=== PATIENT | male | born 1955 | race Caucasian/White ===

== ENCOUNTER 2024-09-18 15:46 | Observation (INO) | payer OTHER ==
[~2024-09-18] VITALS: Ht 180.3 cm; Wt 88.5 kg
[~2024-09-18 15:46] MED LIST: ALBU90I INH; AMLO5; AVINZA PO; CARI350; CARI350 PO; CIPR500 PO; CLON.1; DIAZ10; DIAZ10 PO; FLUO20; FLUO20 PO; GABA300 PO; HIGH BP MEDS; HYDPAM50; IBUHYD PO; LISHYD2012; LISI20 PO; LONOX; Neurontin 300300 MG PO; Norvasc5 MG PO; OMEP20ER PO; ONDA4ODT MM; OXYACE5T; OXYACE5T PO; OXYACE7.5T PO; OXYC1TAB11 PO; PANT20 PO; Prozac40 MG PO; SUCR1 PO; TRAACE PO; VITAMENS; Zestril30 MG PO
[2024-09-18 16:15] LABS: BASOPHILS ABSOLUTE AUTO 0.03 K/mm3 (0.00-0.23); BASOPHILS PERCENT AUTO 0 % (0-2); EOSINOPHILS ABSOLUTE AUTO 0.03 K/mm3 (0.00-0.68); EOSINOPHILS PERCENT AUTO 0 % (0-6); Hematocrit 26.8 % (37.0-53.0); Hemoglobin 8.1 g/dL (13.5-17.5); IMMATURE GRAN ABSOLUTE AUTO 0.06 K/mm3 (0.00-0.10); IMMATURE GRAN PERCENT AUTO 1 % (0-1); LYMPHOCYTES ABSOLUTE AUTO 1.07 K/mm3 (0.84-5.20); LYMPHOCYTES PERCENT AUTO 9 % (21-46); MONOCYTES PERCENT AUTO 9 % (4-13); Mean Corpuscular HGB 23.5 pg (26.0-34.0); Mean Corpuscular HGB Conc 30.2 g/dL (31.5-36.5); Mean Corpuscular Volume 78 fL (80-100); Mean Platelet Volume 7.6 fL (9.1-12.4); NEUTROPHILS ABSOLUTE AUTO 9.36 K/mm3 (1.96-9.15); NEUTROPHILS PERCENT AUTO 81 % (41-73); Platelet Count 319 K/mm3 (150-400); RDW Coefficient Variation 16.9 % (11.7-14.2); RDW Standard Deviation 47.8 fL (35.1-46.3); Red Blood Cell Count 3.45 M/mm3 (4.30-5.90); White Blood Cell Count 11.55 K/mm3 (4.00-11.30)
[2024-09-18 16:19] VITALS: BP 110/68
[2024-09-18 16:29] LABS: International Normalized Ratio 1.11; Prothrombin Time Results 11.8 Sec (9.7-11.5)
[2024-09-18 16:32] LABS: Albumin, Blood 2.5 g/dL (3.4-5.0); Albumin/Globulin Ratio 0.5 (0.8-1.8); Bilirubin, Total 0.3 mg/dL (0.1-1.0); Bun/Creatinine Ratio 17.3 (12.0-20.0); Calcium, Blood 10.2 mg/dL (8.5-10.1); Creatinine, Blood 1.97 mg/dL (0.60-1.20); Globulin, Blood 5.1 g/dL (2.2-4.0); Potassium, Blood 5.3 mmol/L (3.5-5.5); Total Protein, Blood 7.6 g/dL (6.4-8.2)
[2024-09-18] MEDS ORDERED: NS 1,000 ML IV SCH ×2 (16:40→18:40)
[2024-09-18] MEDS ORDERED: Aspirin 325 MG Tab PO ONE (17:15)
[2024-09-18] MEDS ORDERED: Clopidogrel Bisulfate 75 MG Tab PO ONE (17:30)
[2024-09-18] MEDS ORDERED: Ondansetron HCl 2 MG / ML 2ML Vial IV PRN (18:35)
[2024-09-18] MEDS ORDERED: Diazepam 5 MG Tab PO PRN (18:40)
[2024-09-18] MEDS ORDERED: OxyCODONE 5 mg/Acetamin 325 mg TABLET PO PRN (18:40)
[2024-09-18] MEDS ORDERED: Gabapentin 300 MG Cap PO SCH (21:00)
[2024-09-18] MEDS ORDERED: Heparin Sodium,Porcine 5,000 UNIT/0.5 ML SDV SC SCH (21:00)
[2024-09-19] MEDS ORDERED: Clopidogrel Bisulfate 75 MG Tab PO SCH (09:00)
[2024-09-19] MEDS ORDERED: Aspirin 81 MG Chew PO SCH (09:00)
[2024-09-19] MEDS ORDERED: Atorvastatin 40 MG Tab PO SCH (09:00)
== END 2024-09-18 23:00 | disposition home or self-care (01) ==
LOC: ER 15:46 → ERHOLD 18:34
PROVIDERS: Student in an Organized Health Care Education/Training Program; ADMIT Internal Medicine
DX: R47.1 Dysarthria and anarthria (principal); N17.9 Acute kidney failure, unspecified; E78.5 Hyperlipidemia, unspecified; G89.29 Other chronic pain; M54.9 Dorsalgia, unspecified; I12.9 Hypertensive chronic kidney disease with stage 1 through stage 4 chronic kidney disease, or unspecified chronic kidney disease; N18.9 Chronic kidney disease, unspecified; E78.00 Pure hypercholesterolemia, unspecified; Z53.29 Procedure and treatment not carried out because of patient's decision for other reasons; Z79.899 Other long term (current) drug therapy; Z88.5 Allergy status to narcotic agent; Z87.891 Personal history of nicotine dependence
CPT/HCPCS: 70450; 70496; 70498; 71045; 80053; 82140; 82947; 83036; 83605; 83735; 84484; 85025; 85610; 93005; 93010; 99285-25; A9270; G0378; J7030; Q9967

== ENCOUNTER → 2024-11-27 | Outpatient (CLI) | payer MEDICARE, OTHER ==
[2024-11-28 15:39] LABS: Microalbumin, Urine Quant. 24.3 mg/L (0.000-20.000); Protein, Urine Quantitative 37.1 mg/dL (0.0-11.9)
== END ==
LOC: LAB 10:00 → LAB SHORT 10:00 → LAB FUT 11-18 08:10
PROVIDERS: Internal Medicine Nephrology
DX: N18.30 Chronic kidney disease, stage 3 unspecified (principal); D75.1 Secondary polycythemia; E55.9 Vitamin D deficiency, unspecified; E78.00 Pure hypercholesterolemia, unspecified; R76.9 Abnormal immunological finding in serum, unspecified; R94.5 Abnormal results of liver function studies; R94.6 Abnormal results of thyroid function studies; D51.8 Other vitamin B12 deficiency anemias; D52.8 Other folate deficiency anemias; D50.9 Iron deficiency anemia, unspecified
CPT/HCPCS: 81050; 82043; 82570; 84156

== ENCOUNTER 2025-04-10 07:59 | Day surgery (SDC) | payer MEDICARE, OTHER ==
[~2025-04-10 07:59] MED LIST changes: -OXYC1TAB11 PO; +OXYCODONE-ACET1 EAC2 PO
[2025-04-10] MEDS ORDERED: NS 250 ML IV SCH (10:50)
[2025-04-10 15:31] LABS: BASOPHILS ABSOLUTE AUTO 0.04 K/mm3 (0.00-0.23); BASOPHILS PERCENT AUTO 0 % (0-2); EOSINOPHILS ABSOLUTE AUTO 0.08 K/mm3 (0.00-0.68); EOSINOPHILS PERCENT AUTO 1 % (0-6); Hematocrit 22.9 % (37.0-53.0); Hemoglobin 6.4 g/dL (13.5-17.5); IMMATURE GRAN ABSOLUTE AUTO 0.05 K/mm3 (0.00-0.10); IMMATURE GRAN PERCENT AUTO 1 % (0-1); LYMPHOCYTES ABSOLUTE AUTO 1.30 K/mm3 (0.84-5.20); LYMPHOCYTES PERCENT AUTO 14 % (21-46); MONOCYTES ABSOLUTE AUTO 0.60 K/mm3 (0.16-1.47); MONOCYTES PERCENT AUTO 6 % (4-13); Mean Corpuscular HGB Conc 27.9 g/dL (31.5-36.5); Mean Corpuscular Volume 71 fL (80-100); NEUTROPHILS ABSOLUTE AUTO 7.28 K/mm3 (1.96-9.15); NEUTROPHILS PERCENT AUTO 78 % (41-73); NRBC ABSOLUTE 0.00 K/mm3 (0.00-0.02); NRBC Auto 0.0 /100 WBC (0.0-0.2); Platelet Count 433 K/mm3 (150-400); RDW Coefficient Variation 18.6 % (11.7-14.2); RDW Standard Deviation 47.7 fL (35.1-46.3)
[2025-04-10] MEDS ORDERED: Prozac20 MG PO (16:05)
[2025-04-10 16:19] VITALS: BP 148/91
[2025-04-10 16:36] VITALS: BP 148/83
[2025-04-10 17:37] VITALS: BP 164/84
--- NOTE | 2025-04-10 17:45 | NUR ---
Pt declines laxis midway through the blood transfusion. Lungs clear. Watching TV without request.
[2025-04-10 18:44] VITALS: BP 150/93
== END 2025-04-10 18:50 | disposition home or self-care (01) ==
LOC: ATC 07:59
PROVIDERS: Internal Medicine Nephrology
DX: I12.9 Hypertensive chronic kidney disease with stage 1 through stage 4 chronic kidney disease, or unspecified chronic kidney disease (principal); N18.31 Chronic kidney disease, stage 3a; D63.1 Anemia in chronic kidney disease; N25.81 Secondary hyperparathyroidism of renal origin; Z79.899 Other long term (current) drug therapy; Z11.59 Encounter for screening for other viral diseases
CPT/HCPCS: 36415; 36430; 36591; 80053; 80061; 83036; 84443; 85025; 86803; 86850; 86900; 86901; 86923; J7050; P9016